=== PATIENT | female | born 1990 | race Caucasian/White ===

== ENCOUNTER → 2019-08-17 09:08 | Outpatient (CLI) | payer OTHER, SELFPAY ==
--- NOTE | 2019-08-17 | DI.US.S_ITS ---
ULTRASOUND GUIDED BIOPSY RIGHT BREAST USING VACUUM DEVICE WITH POST ULTRASOUND IMAGIN08/17/2019 CLINICAL: Right breast mass. PATIENT CONSENT: Risks (minor bleeding, infection, vasovagal reaction and repeat procedure), benefits and alternatives were explained to the patient and written informed consent was obtained. Correlation is made to exams dated: 06/24/2019 ultrasound, 12/24/2018 ultrasound, and 07/24/2018 ultrasound - [facility]. An ultrasound guided biopsy using real-time ultrasound was performed for the oval mass located in the right breast at 8 o'clock. This was described on the previous ultrasound report. The skin was prepped in the usual manner. Local anesthetic was administered to the access site. The abnormality was approached from the caudocranial aspect. A 17 gauge biopsy needle was placed adjacent to the abnormality through an introducer device under ultrasound guidance. Once the needle was documented to be in the correct location, 3 specimens were obtained using the biopsy device. A biopsy clip was then placed at the biopsy site. Post procedure ultrasound imaging demonstrates the clip at the targeted area. The specimens were sent to the laboratory for pathological analysis. IMPRESSION: ULTRASOUND GUIDED BIOPSY BENIGN Ultrasound guided biopsy of the mass in the right breast was successful. Pathology results indicates benign breast parenchyma with portions of cyst wall, fibroadenomatoid changes, secretory changes, and squamous metaplasia. Focal infarct-type necrosis and early dystrophic calcifications. Negative for atypia, carcinoma in-situ, or malignancy. Images were reviewed and pathology results are concordant with imaging findings. Review of biopsy images demonstrated good biopsy location and number of passes. Given the significant change in the appearance of the mass and enlargement compared to initial imaging dated 07/24/2018, surgical consulation for possible excision may be considered. This exam was interpreted at Station ID: [id number]. Anupama Ruff M.D. fx,aty/:08/24/2019 17:40:30
--- NOTE | 2019-08-17 | PATH_ITS ---
[facility] Accession Number: [id number] . 01 Material submitted: . breast - PT PALP RIGHT BREAST 8:00 2 CM FN . 01 Clinical history: . BREAST CANCER . 02 Diagnosis: Palpable Right Breast Mass at 8:00 2 cmfn, Needle Core Biopsy: Benign breast parenchyma with portions of cyst wall, fibroadenomatoid changes, secretory changes, and squamous metaplasia. Focal infarct-type necrosis and early dystrophic calcifications. Negative for atypia, carcinoma in situ, or malignancy. Please see comment. MRV 08/20/2019 1121 Local . 02 Comment: While these findings may represent the edge of the lesion in question, clinical and radiographic correlation is necessary to ensure definite sampling of the lesion. . Per discussion of preliminary results with nurse Estevez on 08-18-19 at approximately 3:19 p.m., this biopsy was not performed under image guidance. . As part of routine quality system manager, Dr. Turcios has reviewed this case and agrees with the above interpretation. . 02 Electronically signed: . Marta Doyle MD, Pathologist NPI- [id number] . 01 Gross description: . Received one formalin-filled container labeled with the patient's name and labeled right breast PT palp 8 o'clock 2 cm FN. The specimen consists of two light huang, friable portions of tissue which range in size from 0.2 x 0.2 x 0.1 cm to 0.3 x 0.3 x 0.2 cm. The specimen is entirely submitted in one cassette. Collection date: 08/17/2019 at 10:0.5. Total fixation time: Approximately 12 hours. ([id number]) /KATHLEEN 08/18/2019 0224 Local . 02 Pathologist provided ICD-10: N63.10, N64.9 . 02 CPT . 836805 Performed at: 01 [facility] [address] [place] [address], [place], [place] [id number] MD Vaibhav Hillman MD Phone: [phone] Performed at: [address] [facility] [id number] [place], [place] [id number] MD Jessica Fortune MD Phone: [phone]
== END ==
PROVIDERS: Family Provider Nurse Practitioner Family; PCP Nurse Practitioner Family; Visit Provider Surgery
DX: N60.01 Solitary cyst of right breast (principal); N60.81 Other benign mammary dysplasias of right breast
CPT/HCPCS: 19083

== ENCOUNTER 2019-09-07 08:08 | Day surgery (SDC) | payer OTHER, SELFPAY ==
[2019-09-01 07:52] VITALS: BMI 26.7
[2019-09-07] VITALS (8 sets, daily range): BP systolic 93–118; BP diastolic 48–81; PULSE 52–81; RESP 8–16; TEMP 36.2–36.6; O2SAT 95–99; BMI 26.4
--- NOTE | 2019-09-07 08:10 | DI.US.S_ITS ---
LIMITED ULTRASOUND OF RIGHT BREAST: 09/07/2019 CLINICAL: Patient returns to evaluate for an abscess in the right breast prior to lumptectomy. Comparison is made to exams dated: 08/17/2019 ultrasound [facility], 06/24/2019 ultrasound, 12/24/2018 ultrasound, and 07/24/2018 ultrasound - [facility]. Color flow and real-time ultrasound of the right breast 8-10 o'clock region were performed on the areas of interest. Walters scale images of the real-time examination were reviewed. The breast tissue of the right breast is homogeneous dense. There is an area of fibroglandular tissue with an indistinct margin in the right breast at 8-10 o'clock middle depth. This area of fibroglandular tissue is heterogeneously echogenic. This correlates with area of redness and area of clinical concern. There is associated edema but no abscess is found. Color flow imaging demonstrates that there ismild increased vascularity. IMPRESSION: The area of mildly hyperemic heterogeneous fibroglandular tissue in the right breast laterally likely represents mastitis. No abscess found. This study was done to assess for focal drainable contained fluid collection in this lactating patient with prior biopsy and milk secretions exiting to the skin surface through the area of prior surgical incision. This exam was interpreted at Station ID: [id number]. Electronically Signed By: Aram Dowd M.D. [facility]/:09/13/2019 16:39:41 Ultrasound BI-RADS: n/a
[2019-09-07] MEDS: LACTATED RINGERS 1,000 ML 42 ML IV (09:04)
[2019-09-07] MEDS: CEFAZOLIN 2 GM/100 ML FROZ.PIGGY IV (09:15)
--- NOTE | 2019-09-07 09:40 | SUR.OPER ---
Supine on padded OR bed, head on pillow, arms secured on padded arm boards at <90 degrees abduction, legs uncrossed, safety belt at thigh, tape over blanket over lower legs.
[2019-09-07] MEDS: BUPIVACAINE 0.25% (PF) VIAL 30 ML INJ (09:50)
--- NOTE | 2019-09-07 10:15 | SUR.OPER ---
prior to admission to OR Dr. Gordon stated he had updated his H&P.. V. Jan
--- NOTE | 2019-09-07 10:23 | PM.OP.1 ---
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 She underwent a needle biopsy of the mass which demonstrated a fibroadenoma. Subsequently she has began having significant breast tenderness as well as some drainage of milk through the needle biopsy site. She underwent ultrasound that demonstrated no clear abscess within the breast but she had significant tenderness swelling and spontaneous drainage through the skin and was therefore brought to the operating room for incision and drainage. Surgeon: Bowen Gordon Anesthesia Type: General Operative Notes Findings: A collection of milk and purulence within the right breast Specimen(s): other (Cultures of breast abscess) Estimated Blood Loss (mL): 10 Procedure in detail: Patient was brought to the operating room placed supine on the table. Bilateral lower extremity compression devices were applied. 2 g of Ancef was infused. General anesthesia was induced and she was intubated with an endotracheal tube. A time-out was then performed ensure the correct patient procedure necessary equipment within the operating room. 0.25% lidocaine was infiltrated into the skin. A incision was made over the area of greatest fluctuance. There was spontaneous drainage of large volume of milk and purulence. Loculations were broken using blunt dissection. The wound was irrigated and hemostatis was achieved. Iodform was packed into the wound. She tolerated the procedure well was extubated and transfered to the PACU in stable condition. Complications: none Post-operative Condition: stable Disposition: same day surgery
[2019-09-07] MEDS: OXYCODONE/ACETAMINOPHEN 5/325 TABLET 1 TAB PO (10:52)
--- NOTE | 2019-09-07 11:18 | SUR.PHASEII ---
D/C dressing instructions clarified with Dr. Gordon, then reported to pt and . Dressing supplied sent home with pt per the doctors instructions as well. Small amount of pink shadow drainage noted. Pt medicated with percocet. Left when ready and left in stable condition. Pt left when ready and left in stable condition.
--- NOTE | 2019-09-07 12:30 | P.HP_ITS ---
History of Present Illness History of Present Illness Date Patient Seen: 09/13/19 Time Patient Seen: 07:49 Chief complaint: [id number] RIGHT LUMPECTOMY Narrative: This is a 29-year-old breast feeding female with a right painful breast mass which is recurrencent. She had previous fibroadenoma resected several years ago at an outside facility presents with a recurrence. She has undergone a needle biopsy which demonstrated fibroadenoma. Unfortunately since the needle biopsy she has begun to drain of milk spontaneous the through the biopsy site in addition to developing a red painful mass separate from the fibroadenoma. She was originally scheduled for a lumpectomy today for the fibroadenoma but in light of her recent findings will proceed with a incision and drainage. Please refer to the H&P dated 07/29/19 for further detail. Patient History Medical History Hx of breast lump (Acute ~2011) Surgical History Hx of lumpectomy (Acute ~2011) Family & Social History Social History: household members spouse Meds Home Medications and Allergies Home Medications Medication Instructions Recorded Confirmed Type sulfamethoxazole 800 1 tab PO BID #14 tab 09/06/19 09/07/19 Rx mg-trimethoprim 160 mg tablet acetaminophen [Tylenol] 650 mg PO QID PRN #60 cap 09/07/19 Rx tramadol 50 mg PO Q6H PRN #30 tab 09/07/19 Rx Allergies Allergy/AdvReac Type Severity Reaction Status Date / Time No Known Drug Allergies Allergy Verified 09/07/19 08:30 Review of Systems Review of Systems ROS Unobtainable: All systems reviewed & are unremarkable except as noted in HPI and below Exam Vital Signs (past 8 hours): Oxygen Delivery Method Room Air Narrative Exam Narrative: General-no acute distress, well nourished HEENT-moist mucous membranes, no scleral icterus Neck-supple, no lymphadenopathy Chest- non labored respirations, clear to auscultation bilaterally R Breast-flutuant painful erythematous mass lateral aspect draining milk spontaneously. Cardiac-regular rate no peripheral edema Abdomen-soft, nontender, non distended Extremities-warm, well perfused Neurological-alert and oriented, no focal deficits Assessment & Plan Assessment and plan (1) Breast mass, right: Current visit: No Status: Acute Assessment & Plan narrative: This is a 29-year-old female currently breast feeding who has a mass in her right breast that is recurrent. She underwent a needle biopsy of the mass which demonstrated a fibroadenoma. Subsequently she h as began having significant breast tenderness as well as some drainage of milk through the needle biopsy site. She underwent ultrasound today that demonstrated no clear abscess within the breast but she had significant tenderness swelling and spontaneous drainage through the skin and was therefore brought to the operating room for incision and drainage. 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
== END 2019-09-07 11:17 | disposition home or self-care (01) ==
PROVIDERS: Family Provider Nurse Practitioner Family; PCP Nurse Practitioner Family; Visit Provider Surgery
PROC: (CPT 19301; principal; 2019-09-07 09:15)
DX: N61.1 Abscess of the breast and nipple (principal)
CPT/HCPCS: 10060; 76642; 87070; 87075; 87205; J0690; J2704; J3010

== ENCOUNTER 2020-03-07 07:23 | Day surgery (SDC) | payer OTHER, SELFPAY ==
[2019-10-21 15:05] VITALS: BMI 26.7
[2020-03-07] VITALS (11 sets, daily range): BP systolic 103–125; BP diastolic 66–86; PULSE 50–64; RESP 11–19; TEMP 36.3–37.2; O2SAT 97–100; BMI 26.7
--- NOTE | 2020-03-07 | DI.MG.S_ITS ---
SPECIMEN RIGHT BREAST: 03/07/2020 CLINICAL: Right breast mass. Correlation is made to exam dated: 03/07/2020 [employer]. A surgical specimen was imaged for the previous biopsy site located in the right breast at 8 o'clock posterior depth. IMPRESSION: SPECIMEN The imaged specimen includes biopsy clips and the distal portion of the localization wire. Waiting for pathology results. A final report will be issued when these become available. This exam was interpreted at Station ID: [id number]. Андрей ponce/:03/07/2020 13:34:28
--- NOTE | 2020-03-07 | DI.US.S_ITS ---
ULTRASOUND GUIDED WIRE LOCALIZATION RIGHT BREAST: 03/07/2020 CLINICAL: Pre-op wire localization with ultrasound guidance. Correlation is made to exams dated: 09/07/2019 ultrasound, 08/17/2019 ultrasound [facility], 06/24/2019 ultrasound, 12/24/2018 ultrasound, and 07/24/2018 ultrasound - [facility]. A wire localization using ultrasound guidance was performed for the marker clip located in the right breast at 8 o'clock posterior depth. The skin was prepped in the usual manner. A wire was inserted into the targeted area under ultrasound guidance. IMPRESSION: WIRE LOCALIZATION Wire localization for the marker clip in the right breast at 8 o'clock posterior depth was successful. A specimen radiograph is recommended. This exam was interpreted at Station ID: [id number]. Андрей ponce/:03/07/2020 13:27:33
--- NOTE | 2020-03-07 | PATH_ITS ---
[facility] Accession Number: [id number] . 01 Material submitted: . breast - RIGHT BREAST MASS . 01 Clinical history: . R BREAST LUMPECTOMY W/NEED LOC . 01 Diagnosis: Right Breast Mass, Excision: Fragments of fibroadenoma with associated calcifications, dilated ducts with evidence of rupture and associated chronic/histiocytic inflammation, giant cell reaction, and prominent squamous metaplasia. Background breast with focal secretory change, focal usual ductal hyperplasia, focal adenosis and apocrine metaplasia. Negative for atypia, carcinoma in situ, and malignancy. See comment. [facility] 03/10/2020 2114 Local . 01 Comment: Focally prominent intracanalicular growth pattern is noted within the fibroadenoma. Given the reported clinical history of recurrence, the possibility of a benign phyllodes tumor was considered; however, the histologic features are not sufficiently developed for a definitive diagnosis. Appropriate clinical follow-up is recommended. . An attempt to discuss these findings with Dr. Gordon on 03/10/2020 at 3:30 p.m. was unsuccessful. . 01 Electronically signed: Angelita Turcios MD, Pathologist NPI- [id number] . 01 Gross description: . Received in formalin, labeled right breast mass, are two unoriented pieces of perkins-yellow fibrofatty tissue (19 grams, 5.2 x 4.5 x 1.5 cm in aggregate) with no overlying skin. A localization wire superficially enters and exits the rough surface of piece #2. The cut surface is huang-pink, semitranslucent and solid cystic containing pale yellow paste-like material. The surface involving the localization wire is inked blue and the surfaces where the two pieces go together is inked orange. The remaining surfaces are inked black. Piece 1 is perpendicularly sectioned into nine slices and entirely submitted in cassettes A1-A9 with slices 1 and 9 serially sectioned. Piece 2 is serially sectioned into nine slices and entirely submitted in cassettes A10-A19 with slice 1 perpendicularly sectioned in cassettes A10-A11 and slice 9 perpendicularly sectioned in cassette A19. Note: Approximate total fixation time in formalin-39 hours 30 minutes calculated using a collection date of 03/07/2020 with no time given. (JM:[id number]) /MRV 03/08/2020 0958 Local . 01 Microscopic: . Where well-visualized, the borders of the benign fibroepithelial lesion are relatively well-defined. Focally prominent intracanalicular growth pattern with cleft-like spaces and rare frond-like projections covered by epithelium are present; however, there is no prominent stromal hypercellularity, periductal condensation, infiltrative borders, significant cytologic atypia or mitotic activity. Prominent dilatation of ducts with cystic change and associated proteinaceous/calcified material with evidence of rupture, giant cell reaction, prominent squamous metaplasia, and chronic inflammation are present. No polarizable material is identified within select sections examined. The benign fibroepithelial lesion is present at cauterized/inked tisue edges. . 01 Pathologist provided ICD-10: D24.1 . 01 CPT . 144074 Performed at: 01 [facility] [address] [place] [address] [address] [facility], [place], [place] [id number] MD Vaibhav Hillman MD Phone: [phone]
[2020-03-07 09:10] LABS: COVID19 -Nasal RAPID Negative (Negative)
--- NOTE | 2020-03-07 09:45 | PM.PREOP ---
Pre-operative Note COVID-19 COVID-19 status: Negative Result date/Date tested (Pos, Neg/Pending): 03/07/20 Interval Note History & Physical reviewed/Exam performed by Physician: Yes Changes to H&P: No
--- NOTE | 2020-03-07 09:46 | P.HP_ITS ---
History of Present Illness History of Present Illness Date Patient Seen: 03/07/20 Time Patient Seen: 09:48 Chief complaint: [id number] R BREAST LUMPECTOMY W/NEED LOC Narrative: Mattie is a 29-year-old female with a right breast symptomatic fibroadenoma. She underwent a previous resection of a fibroadenoma several years ago at an outside institution and has a recurrence. She has undergone a needle biopsy which demonstrates fibroadenoma. It is quite painful and she desires surgical excision. This was initially planned for several months ago however in the interim she developed a milk duct fistula required incision and drainage of a right breast abscess and surgical excision has been delayed. The abscess and fistula have resolved. She is currently feeling well without pain or fever. She continues to have a painful right breast mass. Patient History Medical History Hx of breast lump (Acute ~2011) Surgical History History of incision and drainage (Acute 09/07/19) Hx of lumpectomy (Acute ~2011) Family & Social History Social History: household members spouse,children Tobacco & Substance use: Smoking Status Never smoker alcohol intake frequency a few times a month Substance Use Type does not use Meds Home Medications and Allergies Home Medications Medication Instructions Recorded Confirmed Type No Known Home Medications 03/07/20 03/07/20 History Allergies Allergy/AdvReac Type Severity Reaction Status Date / Time No Known Drug Allergies Allergy Verified 03/07/20 08:58 Review of Systems Review of Systems Narrative: A 10 point review of systems is negative except as noted in the HPI Exam Narrative Exam Narrative: General-no acute distress, well nourished HEENT-moist mucous membranes, no scleral icterus Neck-supple, no lymphadenopathy Chest- non labored respirations, clear to auscultation bilaterally Cardiac-regular rate no peripheral edema Abdomen-soft, nontender, non distended Extremities-warm, well perfused Neurological-alert and oriented, no focal deficits Objective Labs Labs: Laboratory Results - last 24 hr 03/07/20 08:10 COVID-19 PCR Negative Assessment & Plan Assessment and plan (1) Breast mass, right: Current visit: No Status: Acute Assessment & Plan narrative: 29-year-old female with a recurrent right breast symptomatic fibroadenoma here for scheduled needle-guided lumpectomy. I desc ribed the technical nature of the procedure to her the expected postoperative recovery and the associated surgical risks of bleeding infection seroma formation recurrence. Her questions have been answered she is in agreement with this plan. Will proceed to the operating room.
--- NOTE | 2020-03-07 10:24 | SUR.OPER ---
Supine on padded OR bed, head on pillow, arms secured on padded arm boards at <90 degrees abduction, legs uncrossed, safety belt at thigh, tape over blanket over lower legs.
[2020-03-07] MEDS: LACTATED RINGERS 1,000 ML 100 ML IV (10:30)
[2020-03-07] MEDS: CEFAZOLIN 2 GM/100 ML FROZ.PIGGY IV (10:45)
[2020-03-07] MEDS: BUPIVACAINE 0.25% (PF) VIAL 30 ML INJ (11:10)
--- NOTE | 2020-03-07 11:57 | PM.OP.1 ---
Operative Date/Time/Diagnoses Date of procedure: 03/07/20 Time of procedure: 11:58 Pre-op diagnosis: Fibroadenoma Post-op diagnosis: same Procedure & Clinicians Procedure: Needle guided lumpectomy Same procedure as scheduled: Yes Indications: A 29-year-old female with a symptomatic right breast mass undergone a needle biopsy which demonstrates fibroadenoma Surgeon: Bowen Gordon Anesthesia Type: General Operative Notes Findings: Imaging demonstrates a wire within the specimen. There is retained milk products and abscess capsule within the wound cavity. Specimen(s): other (Right breast mass) Estimated Blood Loss (mL): 10 Procedure in detail: The patient underwent needle localized prior to the operation. They were brought to the operating room and placed supine on the table. Bilateral lower extremity compression devices were applied. They were intubated with an LMA. There were prepped and draped in sterile fashion. Time-out was performed to ensure the correct patient procedure necessary equipment within the operating room. A curvilinear incision on the lateral aspect of the right areola via the previous lumpectomy scar was made and subcutaneous tissues were divided. The localizing wire was identified and then brought back within the incision. The mass was dissected out circumferentially. The end of the wire was within the mass mass its appearance consistent with a fibroadenoma.. The mass was excised with the wire. Imaging demonstrated that the specimen contained the wire. In she had a previous some milk duct of fistula and abscess and there were remnants of retained milk products and abscess capsule although no evidence of active infection within the wound. A wound was copiously irrigated he hemostasis was observed. Subcutaneous tissues were reapproximated with 3 0 Vicryl sutures skin closed with Monocryl followed by application of Dermabond and Steri-Strips. 0.25% bupivacaine was infiltrated into the skin. Complications: none Post-operative Condition: stable Disposition: same day surgery
--- NOTE | 2020-03-07 12:16 | SUR.PHASEI ---
Paatient A/O. Denies pain and nausea. Site CDI.
[2020-03-07] MEDS: OXYCODONE/ACETAMINOPHEN 5/325 TABLET 1 TAB PO (12:29)
[2020-03-07] MEDS: ONDANSETRON 4 MG/2 ML INJ IV (12:29)
--- NOTE | 2020-03-07 12:39 | SUR.PHASEII ---
Gave po pain medication for c/o pain.
== END 2020-03-07 13:16 | disposition home or self-care (01) ==
PROVIDERS: Family Provider Nurse Practitioner Family; PCP Nurse Practitioner Family; Referring Provider Surgery; Visit Provider Surgery
PROC: (CPT 19301; principal; 2020-03-07 11:00)
DX: D24.1 Benign neoplasm of right breast (principal); Z11.59 Encounter for screening for other viral diseases
CPT/HCPCS: 19301; 19285; 76098; 87635; J0690; J1100; J2250; J2405; J2704; J3010